=== PATIENT | male | born 1970 | race American Indian/Alaskan Native ===

== ENCOUNTER 2018-04-25 20:54 | Emergency (ER) | payer BC ==
[2018-04-25] MEDS ORDERED: Sodium Chloride 0.9% 1,000 ML IV STA ×2 (21:17→21:39)
--- NOTE | 2018-04-25 21:21 | ED PDOC ---
Arrival/HPI - General Chief Complaint: Abdominal Pain Time Seen by Provider: 04/25/18 21:09 Historian: Patient - History of Present Illness Narrative History of Present Illness (Text): 04/25/18 21:17 47 year old male, with past medical history of sleep apnea, diabetes and back pain, presents to the Emergency department complaining of nausea, vomiting, diarrhea and abdominal pain since 1 day. Patient informs associated fever and headache prompting him to come to the Emergency department. Patient denies any chest pain, shortness of breath, hematemesis, urinary output changes, changes in bowel movement, sick contact, recent travel or any other complaints. Patient admits to using marijuana and drinking alcohol occasionally. Patient presents to the Emergency department for medical evaluation. Time/Duration: 24 hours Symptom Onset: Gradual Symptom Course: Unchanged Quality: Aching Activities at Onset: Light Context: Home Past Medical History - Provider Review Nursing Documentation Reviewed: Yes - Cardiac Hx Cardiac Disorders: Yes Hx Hypertension: Yes - Pulmonary Hx Respiratory Disorders: Yes Hx Sleep Apnea: Yes - Neurological Hx Neurological Disorder: No - HEENT Hx HEENT Disorder: No - Renal Hx Renal Disorder: No - Endocrine/Metabolic Hx Endocrine Disorders: Yes Hx Diabetes Mellitus Type 2: Yes - Hematological/Oncological Hx Blood Disorders: No - Integumentary Hx Dermatological Disorder: No - Musculoskeletal/Rheumatological Hx Musculoskeletal Disorders: Yes Hx Back Pain: Yes - Gastrointestinal Hx Gastrointestinal Disorders: Yes Other/Comment: HERNIA - Genitourinary/Gynecological Hx Genitourinary Disorders: No - Psychiatric Hx Psychophysiologic Disorder: No Hx Substance Use: Yes (CANNABIS) - Surgical History Hx Hysterectomy: Yes Other/Comment: ENT - Anesthesia Hx Anesthesia: Yes Family/Social History - Physician Review Nursing Documentation Reviewed: Yes Family/Social History: No Known Family HX Smoking Status: Never Smoked Hx Alcohol Use: Yes Frequency of alcohol use: Socially Hx Substance Use: Yes (CANNABIS) Allergies/Home Meds Allergies/Adverse Reactions: Allergies No Known Allergies Allergy (Unverified 04/25/18 20:56) Home Medications: Home Meds Medication Instructions Recorded Confirmed Allopurinol [Zyloprim] 300 mg PO DAILY 04/25/18 04/25/18 Aspirin [Adult Low Dose Aspirin EC] 81 mg PO DAILY 04/25/18 04/25/18 Carvedilol [Coreg] 1 tab PO BID 04/25/18 04/25/18 Cholecalciferol (Vitamin D3) 1 cap PO DAILY 04/25/18 04/25/18 [Vitamin D3] GlipiZIDE [Glucotrol] 10 mg PO DAILY 04/25/18 04/25/18 Lisinopril/Hydrochlorothiazide 1 tab PO DAILY 04/25/18 04/25/18 [Lisinopril-Hctz 20-12.5 mg Tab] Rosuvastatin Calcium [Crestor] 1 tab PO DAILY 04/25/18 04/25/18 Sitagliptin Phos/Metformin HCl 1 tab PO BID 04/25/18 04/25/18 [Janumet 50-1,000 mg Tablet] amLODIPine [Norvasc] 5 mg PO DAILY 04/25/18 04/25/18 Review of Systems - Physician Review All systems were reviewed & negative as marked: Yes - Review of Systems Constitutional: Fevers Eyes: Normal ENT: Normal Respiratory: Normal. absent: SOB Cardiovascular: Normal. absent: Chest Pain Gastrointestinal: Abdominal Pain, Diarrhea, Nausea, Vomiting. absent: Stool Changes, Hematemesis Genitourinary Male: Normal. absent: Urinary Output Changes Musculoskeletal: Normal Skin: Normal Neurological: Headache Endocrine: Normal Hemo/Lymphatic: Normal Psychiatric: Normal Physical Exam Vital Signs Reviewed: Yes Vital Signs Temp Pulse Resp BP Pulse Ox 04/26/18 00:55 20 99 04/25/18 23:48 99.3 F 105 H 18 124/64 98 04/25/18 22:35 102.4 F H 04/25/18 22:34 102.4 F H 04/25/18 21:04 101.6 F H 130 H 17 116/76 98 Temperature: Febrile Blood Pressure: Normal Pulse: Tachycardic Respiratory Rate: Normal Appearance: Positive for: Well-Appearing, Non-Toxic, Comfortable Pain Distress: None Mental Status: Positive for: Alert and Oriented X 3 - Systems Exam Head: Present: Atraumatic, Normocephalic Pupils: Present: PERRL Extroacular Muscles: Present: EOMI Conjunctiva: Present: Normal Mouth: Present: Moist Mucous Membranes Neck: Present: Normal Range of Motion Respiratory/Chest: Present: Clear to Auscultation, Good Air Exchange. No: Respiratory Distress, Accessory Muscle Use Cardiovascular: Present: Regular Rate and Rhythm, Normal S1, S2. No: Murmurs Abdomen: No: Tenderness, Distention, Peritoneal Signs Back: Present: Normal Inspection Upper Extremity: Present: Normal Inspection. No: Cyanosis, Edema Lower Extremity: Present: Normal Inspection. No: Edema Neurological: Present: GCS=15, CN II-XII Intact, Speech Normal Skin: Present: Warm, Dry, Normal Color. No: Rashes Psychiatric: Present: Alert, Oriented x 3, Normal Insight, Normal Concentration Medical Decision Making ED Course and Treatment: 04/25/18 21:25 Impression: 47 year old male presents to the Emergency department for fever, nausea, vomiting, diarrhea, abdominal pain and headache. Plan: -- EKG -- Labs -- Pepcid -- IV Fluids -- Zofran -- Blood Culture -- Urine Culture -- Urinalysis -- Reassess and disposition Prior Visits: Notes and results from previous visits were reviewed. Progress Notes: - Lab Interpretations Lab Results: 04/25/18 21:33 04/25/18 21:33 Lab Results 04/25/18 22:29: Urine Color Yellow, Urine Appearance Clear, Urine pH 6.0, Ur Specific [place] 1.010, Urine Protein 30 H, Urine Glucose (UA) 100 H, Urine Ketones Negative, Urine Blood Trace-lysed H, Urine Nitrate Negative, Urine Bilirubin Negative, Urine Urobilinogen 0.2, Ur Leukocyte Esterase Negative, Urine RBC 0 - 2, Urine WBC 1 - 3, Ur Epithelial Cells 3 - 4, Urine Bacteria Few 04/25/18 21:44: pO2 77 H, VBG pH 7.42, VBG pCO2 32.0 L, VBG HCO3 20.8 L, VBG Total CO2 21.8 L, VBG O2 Sat (Calc) 97.3 H, VBG Base Excess -2.8 L, VBG Potassium 3.5 L, Glucose 251 H, Lactate 1.9, FiO2 21.0, Sodium 133.0, Chloride 100.0, Venous Blood Potassium 3.5 L 04/25/18 21:33: Sodium 136, Potassium 3.4 L, Chloride 101, Carbon Dioxide 20 L, Anion Gap 18, BUN 13, Creatinine 1.3, Est GFR ( Amer) > 60, Est GFR (Non- Af Amer) 59, Random Glucose 236 H, Calcium 9.5, Total Bilirubin 0.5, AST 37, ALT 34, Alkaline Phosphatase 59, Lactate Dehydrogenase 420, Total Creatine Kinase 635 H, CK-MB (CK-2) 1.5, CK-MB (CK-2) % Cancelled, Troponin I < 0.01, Total Protein 8.0, Albumin 4.5, Globulin 3.5, Albumin/Globulin Ratio 1.3, Amylase 198 H, Lipase 113 04/25/18 21:33: PT 13.9 H, INR 1.21 H, APTT 28.3 04/25/18 21:33: WBC 9.3, RBC 4.96, Hgb 14.1, Hct 41.3 L, MCV 83.3, MCH 28.4, MCHC 34.1, RDW 15.7 H, Plt Count 247, MPV 9.4, Gran % 86.6 H, Lymph % (Auto) 7.1 L, [place] % (Auto) 6.2 H, Eos % (Auto) 0.0 L, Baso % (Auto) 0.1, Gran # 8.01 H , Lymph # (Auto) 0.7 L, [place] # (Auto) 0.6, Eos # (Auto) 0.0, Baso # (Auto) 0.01 - EKG Interpretation EKG Interpretation (Text): 04/26/18 06:21 sinus tachycardia [id number] nssts changes - Medication Orders Current Medication Orders: Discontinued Medications Acetaminophen (Tylenol 325mg Tab) 650 mg PO STAT STA Stop: 04/25/18 22:33 Last Admin: 04/25/18 22:35 Dose: 650 mg MAR Pain/Vitals Document 04/25/18 22:35 SS (Rec: 04/25/18 22:36 SS [id number]) Pain Reassessment Is This A Pain ReAssessment? No Presence of Pain Presence of Pain No Pain Scale Used Pain Scale Used Numeric Vitals Temperature (97.6 F-99.6 F) 102.4 F Temperature Source Oral Famotidine (Pepcid) 20 mg IVP STAT STA Stop: 04/25/18 21:18 Last Admin: 04/25/18 21:32 Dose: 20 mg IVP Administration Document 04/25/18 21:32 SS (Rec: 04/25/18 21:32 SS [id number]) Charges for Administration # of IVP Administrations 1 Sodium Chloride (Sodium Chloride 0.9%) 1,000 mls @ 100 mls/hr IV .Q10H STA Stop: 04/26/18 07:16 Last Admin: 04/25/18 21:32 Dose: 100 mls/hr eMAR Start Stop Document 04/25/18 21:32 SS (Rec: 04/25/18 21:32 [id number] Intravenous Solution Start Date 04/25/18 Start Time 21:32 Sodium Chloride (Sodium Chloride 0.9%) 1,000 mls @ 1,000 mls/hr IV .Q1H STA Stop: 04/25/18 22:16 Last Admin: 04/25/18 22:06 Dose: 1,000 mls/hr eMAR Start Stop Document 04/25/18 22:06 SS (Rec: 04/25/18 22:07 [id number] Intravenous Solution Start Date 04/25/18 Start Time 22:06 End Date 04/25/18 End time 23:06 Total Infusion Time 60 Ondansetron HCl (Zofran Inj) 4 mg IVP STAT STA Stop: 04/25/18 21:18 Last Admin: 04/25/18 21:32 Dose: 4 mg IVP Administration Document 04/25/18 21:32 SS (Rec: 04/25/18 21:32 [id number] Charges for Administration # of IVP Administrations 1 - Scribe Statement The provider has reviewed the documentation as recorded by the Scribe Suyapa Mayers. All medical record entries made by the Scribe were at my direction and personally dictated by me. I have reviewed the chart and agree that the record accurately reflects my personal performance of the history, physical exam, medical decision making, and the department course for this patient. I have also personally directed, reviewed, and agree with the discharge instructions and disposition. Disposition/Present on Arrival - Present on Arrival Any Indicators Present on Arrival: No History of DVT/PE: No History of Uncontrolled Diabetes: Yes Urinary Catheter: No History of Decub. Ulcer: No History Surgical Site Infection Following: None - Disposition Have Diagnosis and Disposition been Completed?: Yes Diagnosis: Viral enteritis Disposition: HOME/ ROUTINE Disposition Time: 00:55 Condition: IMPROVED Discharge Instructions (ExitCare): Viral Gastroenteritis, Adult (DC) Prescriptions: Ondansetron [Zofran Odt] 8 mg PO TID PRN #10 odt PRN Reason: Nausea/Vomiting Referrals: Isaac Mata MD [Primary Care Provider] - Follow up with primary Forms: [facility] ([place]i), WORK NOTE
[2018-04-25 21:42] LABS: BASO # 0.01 K/mm3 (0.0-2.0); BASO % 0.1 % (0.0-3.0); GRAN # 8.01 (1.4-6.5); GRAN % 86.6 % (50.0-68.0); HEMOGLOBIN 14.1 g/dL (14.0-18.0); LYMPH # 0.7 (1.2-3.4); LYMPH % 7.1 % (22.0-35.0); MEAN CELL VOLUME 83.3 fl (80.0-105.0); MEAN CORPUSCULAR HEMOGLOBIN 28.4 pg (25.0-35.0); MEAN CORPUSCULAR HGB CONC 34.1 g/dl (31.0-37.0); MEAN PLATELET VOLUME 9.4 fl (7.0-11.0); MONO # 0.6 (0.1-0.6); MONO % 6.2 % (1.0-6.0); RBC 4.96 10^6/uL (3.5-6.1); RED CELL DISTRIBUTION WIDTH 15.7 % (11.5-14.5); WHITE BLOOD COUNT 9.3 10^3/ul (4.5-11.0)
[2018-04-25 21:48] LABS: INR 1.21 (0.93-1.08); PARTIAL THROMBOPLASTIN TIME 28.3 Seconds (25.1-36.5); PROTHROMBIN TIME 13.9 SECONDS (9.4-12.5)
[2018-04-25 21:49] LABS: VENOUS BLOOD GAS BASE EXCESS -2.8 mmol/L (0.0-2.0); VENOUS BLOOD GAS PO2 77 mm/Hg (30-55); VENOUS BLOOD PH 7.42 (7.32-7.43)
[2018-04-25 22:13] LABS: ALB/GLOB RATIO 1.3 (1.1-1.8); ALBUMIN 4.5 g/dL (3.0-4.8); ALT/SGPT 34 U/L (7-56); AMYLASE 198 U/L (35-125); AST/SGOT 37 U/L (17-59); BLOOD UREA NITROGEN 13 mg/dL (7-21); CALCIUM 9.5 mg/dL (8.4-10.5); GFR AFRICAN-AMERICAN > 60; GFR NON-AFRICAN AMERICAN 59; LIPASE 113 U/L (23-300)
[2018-04-25 22:23] LABS: TROPONIN I < 0.01 ng/mL
[2018-04-25 22:30] LABS: CK-MB 1.5 ng/mL (0.0-3.6)
[2018-04-25 22:36] LABS: URINE BILIRUBIN NEGATIVE (NEGATIVE); URINE BLOOD TRACE-LYSED (NEGATIVE); URINE GLUCOSE (UA) 100 mg/dL (NEGATIVE); URINE LEUKOCYTE ESTERASE NEGATIVE Leu/uL (NEGATIVE); URINE PROTEIN 30 mg/dL (<30 mg/dL); URINE UROBILINOGEN 0.2 E.U./dL (<1 E.U./dL)
[2018-04-25 22:37] LABS: URINE APPEARANCE CLEAR (CLEAR); URINE COLOR YELLOW (YELLOW)
[2018-04-25 22:50] LABS: URINE BACTERIA FEW (NEG); URINE RBC 0 - 2 /hpf (0-2)
[2018-04-25 23:49] VITALS: BP 124/64; PULSE 105; TEMP 99.3
[2018-04-26 00:56] VITALS: RESP 20; O2SAT 99
--- NOTE | 2018-04-26 11:24 | CARD ---
APPROVED REPORT EKG Measurement Heart [id number] <Conclusion> Sinus tachycardia Indeterminate axis Borderline ECG
== END 2018-04-26 00:55 | disposition home or self-care (01) ==
LOC: ED 20:54
DX: A08.4 Viral intestinal infection, unspecified (principal); I10 Essential (primary) hypertension; E11.9 Type 2 diabetes mellitus without complications
CPT/HCPCS: 80053; 81001; 82150; 82550; 82553; 82803; 83615; 83690; 84484; 85025; 85610; 85730; 87040; 87086; 93005; 96361; 96374; 96375; 99283; J2405; J7030